=== PATIENT | female | born 1945 | race Caucasian/White ===

== ENCOUNTER → 2020-06-24 | Outpatient (CLI) | payer OTHER ==
[~2020-06-24] MED LIST: ALEVE220 M1 PO; CALCIUM500 MG PO; ESTRADIOL42.5 GM VAG; EUTHYROX75 MCG PO; MAGNESIUM500 MG PO; OMEPRAZOLE 20 M20 M1 PO; VITAMIN D3100 MCG PO
[2020-06-24 13:12] LABS: HEMATOCRIT 38.7 % (37.0-47.0); HEMOGLOBIN 12.8 gm/dL (12.0-15.0); MCH 29.8 pg (26.0-34.0); MCV 90.4 fL (80.0-100.0); RBC 4.29 mil/uL (4.20-5.00); RDW 13.7 % (10.5-14.5); WBC 5.2 thou/uL (4.0-11.0)
[2020-06-24 13:25] LABS: ALBUMIN 3.5 g/dL (3.4-5.0); CALCIUM 9.1 mg/dL (8.5-10.1); CREATININE 0.6 mg/dL (0.6-1.0); POTASSIUM 4.1 mmol/L (3.5-5.1)
[2020-06-24 13:27] LABS: PROTIME 10.7 Seconds (9.3-11.4)
[2020-06-24 13:34] LABS: URINE BILIRUBIN NEGATIVE (Negative); URINE BLOOD NEGATIVE (Negative); URINE CLARITY CLEAR; URINE COLOR YELLOW; URINE GLUCOSE-RANDOM* NEGATIVE (Negative); URINE KETONES NEGATIVE (Negative); URINE LEUKOCYTES-REFLEX NEGATIVE (Negative); URINE NITRITE-REFLEX NEGATIVE (Negative); URINE PROTEIN (DIPSTICK) NEGATIVE (Negative); URINE UROBILINOGEN 0.2 E.U./dl (0.2-1.0)
== END ==
LOC: LAB 08:21
PROVIDERS: ATTEND Orthopaedic Surgery
DX: Z01.812 Encounter for preprocedural laboratory examination (principal); Z20.822 Contact with and (suspected) exposure to COVID-19

== ENCOUNTER 2020-06-29 10:36 | Observation (INO) | payer OTHER ==
[~2020-06-29] VITALS: Ht 149.9 cm; Wt 85.7 kg
[2020-06-29 11:48] VITALS: BP 150/85
[2020-06-29 16:15] VITALS: BP 179/83
[2020-06-29 16:45] VITALS: BP 154/71
[2020-06-29 21:58] VITALS: BP 139/69
[2020-06-30 05:05] VITALS: BP 127/67
[2020-06-30 05:30] LABS: HEMATOCRIT 32.7 % (37.0-47.0); HEMOGLOBIN 10.9 gm/dL (12.0-15.0); MCH 30.3 pg (26.0-34.0); MCHC 33.2 g/dL (28.0-37.0); MCV 91.2 fL (80.0-100.0); RBC 3.58 mil/uL (4.20-5.00); RDW 13.5 % (10.5-14.5); WBC 9.5 thou/uL (4.0-11.0)
[2020-06-30 08:26] VITALS: BP 113/90
[2020-06-30 12:38] VITALS: BP 120/68
--- NOTE | 2020-06-30 14:06 | O ---
[facility] [place] [address] OPERATIVE REPORT Name: ERIN RICHMOND Room #: 444-P [facility]..#: [id number] Admission: 06/29/20 Attend Phys: Laron Maria MD Discharge: Date of : 49 Report #: [id number] THIS REPORT FOR: cc: Jamison Dave MD, Bruce H. MD Abraham,Laron Martin MD ~ DATE OF SERVICE: 06/29/2020 PREOPERATIVE DIAGNOSIS: Right knee osteoarthritis. POSTOPERATIVE DIAGNOSIS: Right knee osteoarthritis. PROCEDURE: Right total knee arthroplasty using Navio robotic prosthetics assistant. SURGEON: Laron Maria MD. ANESTHESIA: LMA with an adductor canal block. IMPLANTS: [employer] size 4 Journey II BCS cobalt chrome femur, size 2 tibia, size 11 polyethylene and size 32 patella. TOURNIQUET TIME: 55 minutes. ESTIMATED BLOOD LOSS: 25 mL. COMPLICATIONS: None. SPECIMENS: None. CONDITION UPON LEAVING THE OPERATING ROOM: Stable. INDICATIONS FOR PROCEDURE: The patient is a 74-year-old female with severe right knee osteoarthritis. She had failed conservative measures for this and after discussion with her, she elected for right total knee arthroplasty. DESCRIPTION OF PROCEDURE: Risks, benefits, alternatives and complications were discussed in detail with the patient including but not limited to risk of anesthesia, risk of damage to nerves, arteries, blood vessels, risk for infection, bleeding, risk for continued knee pain, need for reoperation. Informed consent was obtained from the patient. Right knee was appropriately marked in the preoperative holding area. IV Ancef was given for preoperative antibiotics. She was brought to the operating room and placed in the supine position on the operating room table. LMA anesthesia was induced without complication. Tourniquet was placed on the right thigh. Right lower extremity was prepped and draped in normal sterile fashion. Timeout was performed [address] [address] OPERATIVE REPORT Name: ERIN RICHMOND [id number]: [facility]/20 Attend Phys: Laron Maria MD Discharge: Date of : 49 Report #: [id number] properly identifying the patient and procedure as well as the instrumentation and implants. All in the operating room were in agreement. Right lower extremity was exsanguinated, tourniquet was inflated. Tourniquet time was 55 minutes. Standard midline approach to knee was made with 10 blade through the skin. Dissection was taken down sharply to the fascia and deep flaps were developed medially and laterally. Fresh 10-blade was used to make a medial parapatellar arthrotomy and the knee was inspected. There was severe tricompartmental osteoarthritis. ACL and PCL were removed sharply. Reference pins were placed in the femur and the tibia. The knee was digitally mapped using the [employer] robotic system. Intraoperative plan was made and we sized the size 4 femur, a size D tibia and a 10 spacer. After acceptance of the intraoperative plan, the distal femoral cut was made with Navio bur. Distal femoral cutting block was pinned in place and chamfer cuts were made. Attention was turned to the tibia. Remainder of the menisci removed with Bovie cautery. Tibial resection guide was pinned in place using the Navio for placement and tibial resection was made. Flexion and extension gaps were then checked and found to have good balance in flexion and extension both medially and laterally. Tibia was sized, found to be a size 2. Size 2 tibial trial was placed, pinned and punched. Size 4 femoral trial was placed and box cut was made. This was then trialed with a size 10 and then a size 11 polyethylene ___ demonstrated 1-2 millimeter of laxity medially and laterally throughout range of motion of the knee. A 9 mm of bone was resected from the posterior surface of the patella and a size 32 patellar trial button was placed. Knee was taken through range of motion, found to be stable, found to have good patellar tracking. Trial components were removed. Bony ends were thoroughly irrigated with normal saline. A final size 2 tibia, size 4 Journey II BCS cobalt chrome femur and a size 32 patella were cemented in place using standard cementation techniques. While the cement cured, a periarticular injection consisting of morphine, ropivacaine, epinephrine and Toradol was placed around the knee joint capsule. After the cement cured, tourniquet was deflated. Hemostasis obtained with Bovie cautery. Final size 11 polyethylene was placed. A gram of vancomycin was placed deep in the joint. Fascia was closed with 0 Vicryl, skin was closed with 2-0 Vicryl, skin staple and a MATA dressing was applied. The patient tolerated this procedure well and went to recovery room under care of anesthesia postoperatively. <ELECTRONICALLY SIGNED> By: Laron Maria MD 06/30/20 [id number] Laron Maria MD /nt
[2020-06-30 16:32] VITALS: BP 126/78
[2020-06-30 20:17] VITALS: BP 132/57
[2020-07-01 05:39] LABS: HEMATOCRIT 30.2 % (37.0-47.0); HEMOGLOBIN 10.3 gm/dL (12.0-15.0); MCV 91.3 fL (80.0-100.0); RBC 3.31 mil/uL (4.20-5.00); RDW 13.9 % (10.5-14.5); WBC 6.8 thou/uL (4.0-11.0)
[2020-07-01 07:49] VITALS: BP 130/65
[2020-07-01 12:57] VITALS: BP 130/65
[2020-07-01 15:53] VITALS: BP 134/59
== END 2020-07-01 17:46 | disposition home or self-care (01) ==
LOC: OR 10:36 → 4S 16:27 → OR 17:54 → 4S 18:16
PROVIDERS: ADMIT Orthopaedic Surgery; ATTEND Orthopaedic Surgery
DX: M17.11 Unilateral primary osteoarthritis, right knee (principal); Z79.899 Other long term (current) drug therapy
CPT/HCPCS: 50010; 50101; 50415; 50954; 51130; 51225; 51320; 51412; 53000; 53078; 56527; 56528; 57095; 57103; 57110; 57127; 57180; 58239; 62110; 62900; 64039; 70005